=== PATIENT | male | born 1965 | race African-American/Black ===

== ENCOUNTER 2017-10-28 10:30 | Emergency (ER) | payer MEDICAID ==
[~2017-10-28] VITALS: Ht 170.2 cm; Wt 72.7 kg
[2017-10-28] MEDS ORDERED: PROPARACAINE/FLUORESCEIN SOD 0.5-0.25% 0.5 ML OPHTHALMIC SOLUTION OS ONE (11:30)
[2017-10-28] MEDS ORDERED: PredniSONE 20 MG TABLET PO ONE (11:45)
[2017-10-28 11:57] VITALS: BP 101/58
== END 2017-10-28 12:16 | disposition home or self-care (01) ==
LOC: EMS 10:31
DX: H00.034 Abscess of left upper eyelid (principal); F17.210 Nicotine dependence, cigarettes, uncomplicated; F12.90 Cannabis use, unspecified, uncomplicated
CPT/HCPCS: 99283; J7512